=== PATIENT | female | born 1955 | race African-American/Black ===

== ENCOUNTER 2020-12-28 17:25 | Emergency (ER) | payer OTHER ==
[~2020-12-28] VITALS: Ht 162.6 cm; Wt 101.6 kg
[2020-12-28 17:31] VITALS: BP 159/83
== END 2020-12-28 21:11 | disposition home or self-care (01) ==
LOC: ED 18:00
DX: M25.561 Pain in right knee (principal); Z96.651 Presence of right artificial knee joint; W18.30XA Fall on same level, unspecified, initial encounter; Y93.89 Activity, other specified; Y92.89 Other specified places as the place of occurrence of the external cause; S83.91XA Sprain of unspecified site of right knee, initial encounter; X58.XXXA Exposure to other specified factors, initial encounter; Y99.8 Other external cause status
CPT/HCPCS: 99283